=== PATIENT | female | born 1930 | race Caucasian/White ===

== ENCOUNTER 2020-01-25 17:53 | Emergency (ER) | payer OTHER, MEDICARE ==
[2020-01-25 18:16] VITALS: BMI 31.6
[2020-01-25] MEDS ORDERED: LACTATED RINGERS SOLUTION 1000 ML INFUS.BAG IV ONE (19:52)
[2020-01-25] MEDS ORDERED: SIMETHICONE 80 MG TAB.CHEW (FP) PO ONE (20:01)
[2020-01-25] MEDS ORDERED: SODIUM CHLORIDE 250 ML IV STA (20:10)
[2020-01-25 20:24] LABS: BASO % 0.8 % (0-2.0); EOS % 0.9 % (0-4.5); HEMATOCRIT 40.2 % (32.4-45.2); HEMOGLOBIN 13.4 GM/dL (10.7-15.3); LYMPH % 26.2 % (8-40); MCH 30.1 pg (25.7-33.7); MCHC 33.3 g/dl (32.0-36.0); MEAN CELL VOLUME 90.5 fl (80-96); MEAN PLT VOLUME 9.6 fl (7.5-11.1); MONO % 10.1 % (3.8-10.2); PLATELET COUNT 252 K/MM3 (134-434); RBC 4.44 M/mm3 (3.60-5.2); RDW 13.7 % (11.6-15.6); WHITE BLOOD COUNT 8.7 K/mm3 (4.0-10.0)
[2020-01-25 20:31] LABS: EPI CELLS 22 /uL (0-25.1); HYALINE CASTS 1 /uL (0-3.1); PH,URINE 6.5 (5.0-8.0); URINE APPEARANCE CLEAR; URINE BACTERIA 69 /uL (0-1359); URINE BILIRUBIN NEGATIVE (NEGATIVE); URINE COLOR YELLOW; URINE GLUCOSE (UA) NEGATIVE (NEGATIVE); URINE KETONE NEGATIVE (NEGATIVE); URINE LEUK ESTERASE 1+ (NEGATIVE); URINE NITRITE NEGATIVE (NEGATIVE); URINE PROTEIN NEGATIVE (NEGATIVE); URINE RBC 8 /uL (0-23.9); URINE UROBILINOGEN 0.2 mg/dL (0.2-1.0); URINE WBC 58 /uL (0-25.8)
[2020-01-25 20:49] LABS: POTASSIUM 4.8 mmol/L (3.5-5.1)
[2020-01-25 20:51] LABS: ALBUMIN 3.7 g/dl (3.4-5.0); BLOOD UREA NITROGEN 15.8 mg/dL (7-18); CALCIUM 11.1 mg/dL (8.5-10.1)
[2020-01-25 20:54] LABS: CREATININE 1.3 mg/dL (0.55-1.3)
[2020-01-25 20:56] LABS: BILIRUBIN,TOTAL 0.4 mg/dL (0.2-1); TOT PROT 6.7 g/dl (6.4-8.2)
[2020-01-26 01:18] VITALS: BP 138/78; PULSE 74; TEMP 98
== END 2020-01-26 01:18 | disposition home or self-care (01) ==
LOC: JER 17:53
PROC: 3E0337Z Introduction of Electrolytic and Water Balance Substance into Peripheral Vein, Percutaneous Approach (ICD-10-PCS; principal; 2020-01-25)
DX: K59.00 Constipation, unspecified (principal)
CPT/HCPCS: 36415; 74019-TC-FY; 80053; 81003; 85025; 99284-25

== ENCOUNTER 2020-01-26 10:32 | Emergency (ER) | payer OTHER, MEDICARE ==
[2020-01-26 11:01] VITALS: TEMP 99.1; BMI 31.1
[2020-01-26] MEDS ORDERED: SODIUM CHLORIDE 1,000 ML IV STA (11:17)
[2020-01-26 11:37] LABS: BASO % 0.8 % (0-2.0); HEMATOCRIT 39.9 % (32.4-45.2); HEMOGLOBIN 13.3 GM/dL (10.7-15.3); LYMPH % 21.9 % (8-40); MCHC 33.2 g/dl (32.0-36.0); MEAN CELL VOLUME 90.3 fl (80-96); MEAN PLT VOLUME 9.8 fl (7.5-11.1); MONO % 9.5 % (3.8-10.2); NEUT % 66.8 % (42.8-82.8); PLATELET COUNT 261 K/MM3 (134-434); RBC 4.42 M/mm3 (3.60-5.2); RDW 13.8 % (11.6-15.6); WHITE BLOOD COUNT 9.4 K/mm3 (4.0-10.0)
[2020-01-26 11:44] LABS: INR 1.03 (0.83-1.09); PROTHROMBIN TIME (PATIENT) 12.6 SEC (9.7-13.0)
[2020-01-26 11:47] LABS: ACTIVATED PTT 30.7 SECONDS (25.2-36.5)
[2020-01-26 11:57] LABS: POTASSIUM 4.5 mmol/L (3.5-5.1)
[2020-01-26 12:00] LABS: ALBUMIN 3.7 g/dl (3.4-5.0); CALCIUM 10.6 mg/dL (8.5-10.1); MAGNESIUM 2.2 mg/dL (1.8-2.4)
[2020-01-26 12:03] LABS: CREATININE 1.3 mg/dL (0.55-1.3)
[2020-01-26 12:05] LABS: BILIRUBIN,TOTAL 0.4 mg/dL (0.2-1); TOT PROT 6.6 g/dl (6.4-8.2)
[2020-01-26 15:43] VITALS: BP 144/71; PULSE 69
== END 2020-01-26 15:53 | disposition home or self-care (01) ==
LOC: JER 10:32
PROC: 3E0337Z Introduction of Electrolytic and Water Balance Substance into Peripheral Vein, Percutaneous Approach (ICD-10-PCS; principal; 2020-01-26)
DX: R10.9 Unspecified abdominal pain (principal)
CPT/HCPCS: 36415; 71045-TC-FY; 74176-TC; 80053; 83605; 83690; 83735; 85025; 85610; 85730; 86850; 86900; 86901; 93005; 93010; 99285-25